=== PATIENT | female | born 1940 | race Caucasian/White ===

== ENCOUNTER → 2023-04-27 12:10 | Outpatient (REF) | payer MEDICARE, OTHER, SELFPAY | LOC: WDC 12:10 | PROVIDERS: ATTENDING PHYSICIAN Internal Medicine | DX: Z12.31 Encounter for screening mammogram for malignant neoplasm of breast (principal) | CPT/HCPCS: 77063; 77067 ==

== ENCOUNTER 2024-03-21 12:25 | Outpatient (RCR) | payer OTHER, SELFPAY | END 2024-03-21 23:59 | disposition home or self-care (01) | LOC: ROT 12:25 | PROVIDERS: ATTENDING PHYSICIAN Internal Medicine | DX: Z02.4 Encounter for examination for driving license (principal) ==